=== PATIENT | male | born 1995 | race Caucasian/White ===

== ENCOUNTER 2021-10-09 20:27 | Inpatient (IN) | payer OTHER ==
[~2021-10-09] VITALS: Ht 175.3 cm; Wt 67.1 kg
[2021-10-09 22:32] LABS: HEMOGLOBIN 13.9 gm/dl (14.0-17.5); RED BLOOD COUNT 4.68 M/UL (4.20-5.50)
[2021-10-09 23:05] LABS: BUN/CREATININE RATIO 15 (0-10)
[2021-10-10 05:56] LABS: HEMOGLOBIN 12.4 gm/dl (14.0-17.5)
[2021-10-10 06:00] LABS: RED BLOOD COUNT 4.14 M/UL (4.20-5.50); WHITE BLOOD COUNT 11.8 K/UL (4.5-11.0)
[2021-10-10 06:32] LABS: BUN/CREATININE RATIO 17 (0-10)
[2021-10-10] MEDS ORDERED: VITAMIN D21250 MCG PO (11:46)
[2021-10-10] MEDS ORDERED: TOVIAZ8 MG PO (11:46)
[2021-10-10] MEDS ORDERED: DICLOFENAC SODI75 MG PO (11:47)
[2021-10-10] MEDS ORDERED: BACLOFEN20 MG PO (11:47)
[2021-10-10] MEDS ORDERED: GABAPENTIN400 MG PO (11:48)
[2021-10-10] MEDS ORDERED: HYDROXYZINE PAM25 MG PO (11:49)
[2021-10-10] MEDS ORDERED: LORATADINE10 MG PO (11:49)
[2021-10-10] MEDS ORDERED: ONDANSETRON ODT4 MG PO (11:50)
[2021-10-10] MEDS ORDERED: TRAMADOL HCL50 MG PO (11:51)
[2021-10-10] MEDS ORDERED: AIMOVIG AU70 MG/1 ML SQ (11:52)
[2021-10-10] MEDS ORDERED: ZOLPIDEM TARTRA10 MG PO (12:08)
[2021-10-10] MEDS ORDERED: DEXTROAMP-AMPHE20 MG PO (12:09)
[2021-10-10] MEDS ORDERED: AMPHETAMINE SA7.5 MG PO (12:11)
[2021-10-10] MEDS ORDERED: VENLAFAXINE HC150 MG PO (12:12)
[2021-10-11 06:12] LABS: HEMOGLOBIN 12.2 gm/dl (14.0-17.5); RED BLOOD COUNT 4.11 M/UL (4.20-5.50)
[2021-10-11 06:17] LABS: WHITE BLOOD COUNT 8.3 K/UL (4.5-11.0)
[2021-10-11 06:50] LABS: BUN/CREATININE RATIO 8 (0-10)
== END 2021-10-12 10:58 | disposition home or self-care (01) | DRG 872 ==
LOC: ER1 20:27 → MED SURG 4 23:50 → CDU 23:50 → MED SURG 4 10-10 09:38
PROVIDERS: Internal Medicine; Physician Assistant; ADMIT Internal Medicine
DX: A41.9 Sepsis, unspecified organism (principal); E87.2 Acidosis; R65.20 Severe sepsis without septic shock; G43.909 Migraine, unspecified, not intractable, without status migrainosus; F17.200 Nicotine dependence, unspecified, uncomplicated; N30.10 Interstitial cystitis (chronic) without hematuria; Z96.619 Presence of unspecified artificial shoulder joint; E83.42 Hypomagnesemia; Z20.822 Contact with and (suspected) exposure to COVID-19; K52.9 Noninfective gastroenteritis and colitis, unspecified; E83.39 Other disorders of phosphorus metabolism; Z88.8 Allergy status to other drugs, medicaments and biological substances; Z85.46 Personal history of malignant neoplasm of prostate
CPT/HCPCS: 0240U; 36415; 71045; 80048; 80053; 81001; 82550; 82553; 83605; 83735; 83880; 84100; 84484; 85025; 85610; 85652; 85730; 86140; 87040; 87081; 87086; 87205; 87880; 93005; 96361; 96365; 96366; 96368; 96372; 96375; 96376; 99285; G0378; J0456; J0696; J1650; J1885; J2405; J3475; J7030